=== PATIENT | female | born 1970 | race Caucasian/White ===

== ENCOUNTER 2016-11-25 02:46 | Emergency (ER) | payer OTHER ==
[2016-11-25 01:29] LABS: INFLUENZA A NEG (NEG); INFLUENZA B NEG (NEG)
[~2016-11-25 02:46] MED LIST: AURALGAN OTIC S10 ML AD; AZITHROMYCIN250 MG PO; BACTRIM DS TABL1 TA2 PO; BACTRIM DS TABL1 TAB PO; CLIMARA 0.050.05 MG; CYMBALTA PO; DEPAKOTE PO; DICLOFENAC PO; DOXYCYCLINE HY100 M1 PO; DOXYCYCLINE PO; EXCEDRIN MIGRAI1 TA1 PO; FLAGYL PO; FLEXERIL PO; FLEXERIL10 MG PO; GRALISE1 EACH; IBUPROFEN; IBUPROFEN PO; KETOPROFEN PO; KLONOPIN PO; LITHIUM PO; MEDROL PO; MEDROL4 MG/DOSE- PO; NO MEDICATIONS; PHENERGAN; PHENERGAN DM1 ML PO; PHENERGAN PO; PREDNISONE50 MG PO; PROTONIX PO; SENNA PO; TRAZODONE; TRAZODONE PO; VICODIN 5/1 TAB 5/50 PO; VICODIN 5/500 T1 TAB PO; VOLTAREN50 MG PO; VOLTAREN75 MG PO; ZANTAC PO; ZOCOR; ZOLOFT; ZOLOFT PO; ZYRTEC
[2016-11-27] MEDS ORDERED: ZOFRAN2 MG/M1 PO (20:07)
== END 2016-11-25 03:00 | disposition home or self-care (01) ==
LOC: SED 02:46
DX: B34.9 Viral infection, unspecified (principal); F31.9 Bipolar disorder, unspecified; B19.20 Unspecified viral hepatitis C without hepatic coma; F17.200 Nicotine dependence, unspecified, uncomplicated; Z90.710 Acquired absence of both cervix and uterus; Z90.49 Acquired absence of other specified parts of digestive tract; Z88.5 Allergy status to narcotic agent; Z88.1 Allergy status to other antibiotic agents; Z88.8 Allergy status to other drugs, medicaments and biological substances
CPT/HCPCS: 36415; 87804; 96361; 96374; 96375; 99284; J2405

== ENCOUNTER 2016-11-27 20:34 | Emergency (ER) | payer OTHER ==
[~2016-11-27 20:34] MED LIST changes: +ZOFRAN2 MG/M1 PO
[2016-11-27 20:46] LABS: INFLUENZA A NEG (NEG); INFLUENZA B NEG (NEG)
[2016-11-27 20:54] LABS: BASOPHIL% 0.3 % (0-2.5); EOSINOPHIL# 0.1 X10e3 (0-0.7); EOSINOPHIL% 0.7 % (0.0-7.0); HEMATOCRIT 34.6 % (35.0-45.0); HEMOGLOBIN 11.7 gm/dL (12.0-16.0); LYMPHOCYTE# 0.7 X10e3 (1.0-3.5); LYMPHOCYTE% 8.8 % (17.0-45.0); MEAN CELL VOLUME 87.3 FL (83-96); MEAN CORPUSCULAR HEMOGLOBIN 29.5 PG (28-34); MEAN CORPUSCULAR HGB CONC 33.8 g/dL (30-36); MONOCYTE# 0.6 X10e3 (0-1.0); NEUTROPHIL# 6.8 X10e3 (1.5-7.1); NEUTROPHIL% 83.2 % (40-75); PLATELET COUNT 279 X10e3 (140-420); RED BLOOD COUNT 3.97 X10e (3.90-5.30); WHITE BLOOD COUNT 8.2 X10e3 (4.0-10.5)
[2016-11-27 20:55] LABS: DIFF IND NO
[2016-11-27 21:11] LABS: ALBUMIN SERUM 3.4 g/dL (3.5-5.0); ALKALINE PHOSPHATASE 74 U/L (32-92); ALT (SGPT) 14 U/L (10-40); AST (SGOT) 20 U/L (10-42); BILIRUBIN,TOTAL 0.1 mg/dL (0.2-2.0); CALCIUM SERUM 8.8 mg/dL (8.4-10.2); CARBON DIOXIDE 22 mmol/L (22-31); CHLORIDE 106 mmol/L (100-111); CREATININE SERUM 0.7 mg/dL (0.6-1.4); GLOM FILT RATE Estimated 103.9 mL/min (>60); GLUCOSE FASTING 108 mg/dL (70-110); POTASSIUM 3.2 mmol/L (3.5-5.1); PROTEIN TOTAL SERUM 6.9 g/dL (6.0-8.3); SODIUM 136 mmol/L (135-145)
[2016-11-27 21:16] LABS: BILIRUBIN, DIRECT <0.1 mg/dL (0.0-0.2); BLOOD UREA NITROGEN <5 mg/dL (9-23); BUN/CREATININE RATIO 7.14
[2016-11-27 21:39] LABS: URINE SOURCE CLEAN CATCH
[2016-11-27 21:41] LABS: URINE APPEARANCE CLEAR; URINE BILIRUBIN NEG (NEG); URINE BLOOD 1+ (NEG); URINE COLOR YELLOW; URINE GLUCOSE NEG (NORM); URINE KETONE NEG (NEG); URINE LEUKOCYTE ESTERASE 1+ (NEG); URINE NITRATE NEG (NEG); URINE PROTEIN NEG (NEG); URINE SPECIFIC GRAVITY <=1.005 (1.003-1.035); URINE UROBILINOGEN 0.2 MG/DL (NORM)
[2016-11-27 21:42] LABS: MICRO INDICATED? YES
[2016-11-27 21:45] LABS: URINE BACTERIA 1+ (NEG); URINE SQUAMOUS EPITHELIAL CELL OCCAS /[HPF]; URINE TRANSITIONAL EPI CELLS FEW /[HPF]
[2016-11-27 21:51] LABS: AMPHETAMINE NEG (NEG); BARBITURATES NEG (NEG); BENZODIAZEPINES NEG (NEG); COCAINE NEG (NEG); MARIJUANA POS (NEG); OPIATES NEG (NEG); TRICYCLIC ANTIDEPRESSANTS NEG (NEG); U METHADONE NEG (NEG)
== END 2016-11-27 22:08 | disposition home or self-care (01) ==
LOC: SED 20:34
PROVIDERS: Emergency Medicine
DX: G43.909 Migraine, unspecified, not intractable, without status migrainosus (principal); B34.9 Viral infection, unspecified; J44.9 Chronic obstructive pulmonary disease, unspecified; F17.200 Nicotine dependence, unspecified, uncomplicated; Z90.49 Acquired absence of other specified parts of digestive tract; Z90.710 Acquired absence of both cervix and uterus
CPT/HCPCS: 36415; 80048; 80076; 80307; 81003; 85025; 87651; 87804; 96361; 96374; 96375; 99284; J1170; J2550